=== PATIENT | female | born 1950 | race Caucasian/White ===

== ENCOUNTER → 2023-07-27 09:12 | Outpatient (REF) | payer MEDICARE, OTHER, SELFPAY | LOC: PAVMRI 09:12 | PROVIDERS: ATTENDING PHYSICIAN Orthopaedic Surgery; FAMILY PHYSICIAN Internal Medicine Geriatric Medicine | DX: M25.512 Pain in left shoulder (principal) | CPT/HCPCS: 73221 ==

== ENCOUNTER → 2023-08-14 09:53 | Outpatient (REF) | payer MEDICARE, OTHER, SELFPAY ==
[2023-08-14 11:04] LABS: % Basophils 1.2 % (0-2); % Eosinophils 2.6 % (0-6); % Immature Granulocytes 0.2 % (0-0.5); % Lymphocytes 25.4 % (20.5-51.1); % Monocytes 8.3 % (1.7-9.3); % Neutrophils 62.3 % (42.2-75.2); Absolute Basophils 0.1 10^3/uL (0-0.2); Absolute Eosinophils 0.1 10^3/uL (0-0.7); Absolute Lymphocytes 1.3 10^3/uL (1.2-3.4); Absolute Monocytes 0.4 10^3/uL (0.1-0.6); Absolute Neutrophils 3.2 10^3/uL (1.4-6.5); Hematocrit 40.2 % (37.0-47.0); Hemoglobin 13.2 g/dL (12.0-16.0); Mean Corp Hgb Conc. 32.8 g/dL (33.0-37.0); Mean Corpuscular Hgb 30.3 pg (27.0-31.0); Mean Corpuscular Volume 92.2 fL (81.0-99.0); Mean Platelet Volume 9.8 fL (7.4-10.4); Nucleated Red Blood Cells % 0 %; Platelet Count 238 10^3/uL (130-400); Red Blood Cell Count 4.36 10^6/uL (4.20-5.40); Red Cell Dist. Width 13.5 % (11.5-14.5); White Blood Cell Count 5.1 10^3/uL (4.8-10.8)
[2023-08-14 12:04] LABS: Blood Urea Nitrogen 17 mg/dl (7-17); Calcium 10.1 mg/dl (8.4-10.2); Carbon Dioxide 27 mmol/L (22-30); Chloride 103 mmol/L (98-107); Glucose 90 mg/dl (70-99); Potassium 4.5 mmol/L (3.5-5.1); Sodium 139 mmol/L (135-145); eGFR > 60.00
== END ==
LOC: REG 09:53
PROVIDERS: ATTENDING PHYSICIAN Orthopaedic Surgery
DX: Z01.818 Encounter for other preprocedural examination (principal)
CPT/HCPCS: 36415; 80048; 85025; 93005

== ENCOUNTER 2023-10-13 10:51 | Outpatient (RCR) | payer MEDICARE, OTHER, SELFPAY | END 2023-10-13 23:59 | disposition home or self-care (01) | LOC: RPT 10:51 | PROVIDERS: ATTENDING PHYSICIAN Orthopaedic Surgery; FAMILY PHYSICIAN Internal Medicine Geriatric Medicine | DX: M25.512 Pain in left shoulder (principal); Z98.890 Other specified postprocedural states; Z73.6 Limitation of activities due to disability | CPT/HCPCS: 97010; 97110; 97140; 97162 ==

== ENCOUNTER 2023-10-28 09:52 | Outpatient (RCR) | payer MEDICARE, OTHER, SELFPAY | END 2023-10-28 12:12 | disposition home or self-care (01) | LOC: RPT 09:52 | PROVIDERS: ATTENDING PHYSICIAN Orthopaedic Surgery; FAMILY PHYSICIAN Internal Medicine Geriatric Medicine | DX: M75.102 Unspecified rotator cuff tear or rupture of left shoulder, not specified as traumatic (principal) | CPT/HCPCS: 97010; 97110; 97140 ==

== ENCOUNTER → 2024-03-04 08:35 | Outpatient (REF) | payer MEDICARE, OTHER, SELFPAY ==
[2024-03-04 09:25] LABS: % Basophils 0.8 % (0-2); % Eosinophils 1.8 % (0-6); % Immature Granulocytes 0.2 % (0-0.5); % Lymphocytes 25.7 % (20.5-51.1); % Monocytes 7.9 % (1.7-9.3); % Neutrophils 63.6 % (42.2-75.2); Absolute Eosinophils 0.1 10^3/uL (0-0.7); Absolute Lymphocytes 1.3 10^3/uL (1.2-3.4); Absolute Monocytes 0.4 10^3/uL (0.1-0.6); Absolute Neutrophils 3.2 10^3/uL (1.4-6.5); Hematocrit 39.1 % (37.0-47.0); Hemoglobin 13.4 g/dL (12.0-16.0); Mean Corp Hgb Conc. 34.3 g/dL (33.0-37.0); Mean Corpuscular Hgb 31.7 pg (27.0-31.0); Mean Corpuscular Volume 92.4 fL (81.0-99.0); Mean Platelet Volume 9.4 fL (7.4-10.4); Nucleated Red Blood Cells % 0 %; Platelet Count 243 10^3/uL (130-400); Red Blood Cell Count 4.23 10^6/uL (4.20-5.40); Red Cell Dist. Width 13.2 % (11.5-14.5)
[2024-03-04 09:49] LABS: Urine Albumin Negative (Neg - Trace); Urine Bilirubin Negative (Negative); Urine Character Clear (Clear); Urine Color Yellow; Urine Glucose Negative (Negative); Urine Ketone Negative (Negative); Urine Leukocyte Trace (Negative); Urine Nitrite Negative (Negative); Urine Occult Blood Negative (Negative); Urine Specific Gravity 1.015 (<1.030); Urine Urobilinogen Negative (Neg - 1+)
[2024-03-04 09:59] LABS: Vitamin D, 25-OH*** 53.6 ng/mL (30-80)
[2024-03-04 10:05] LABS: ALT (SGPT) 19 U/L (0-35); AST (SGOT) 31 U/L (14-36); Albumin 4.4 g/dl (3.5-5.0); Alkaline Phosphatase 72 U/L (38-126); Blood Urea Nitrogen 12 mg/dl (7-17); Calcium 9.9 mg/dl (8.4-10.2); Carbon Dioxide 26 mmol/L (22-30); Chloride 107 mmol/L (98-107); Glucose 87 mg/dl (70-99); HDL Cholesterol 96 mg/dl; LDL Cholesterol, Calculated 85 mg/dl; Potassium 4.2 mmol/L (3.5-5.1); Sodium 144 mmol/L (135-145); Total Bilirubin 0.8 mg/dl (0.2-1.3); Total Cholesterol 194 mg/dl (50-199); Total Protein 6.6 g/dl (6.3-8.2); Triglyceride 69 mg/dl (10-149); Very Low Density Lipoprotein 13 mg/dl (0-30); eGFR > 60.00
[2024-03-04 10:13] LABS: TSH Reflex To Free T4 2.33 uIU/ml (0.47-4.68)
[2024-03-04 11:23] LABS: Urine Mucus Many
[2024-03-04 11:24] LABS: Urine Red Blood Cell 0-2 /HPF (0-2); Urine White Cell 0-2 /HPF (0-5)
== END ==
LOC: REG 08:35
PROVIDERS: ATTENDING PHYSICIAN Internal Medicine Geriatric Medicine
DX: E03.9 Hypothyroidism, unspecified (principal); E78.2 Mixed hyperlipidemia; E55.9 Vitamin D deficiency, unspecified; Z00.00 Encounter for general adult medical examination without abnormal findings; I10 Essential (primary) hypertension
CPT/HCPCS: 36415; 80053; 80061; 81003; 81015; 82306; 84443; 85025

== ENCOUNTER → 2024-04-04 15:11 | Outpatient (REF) | payer MEDICARE, OTHER, SELFPAY | LOC: WDC 15:11 | PROVIDERS: ATTENDING PHYSICIAN Internal Medicine Geriatric Medicine | DX: Z12.39 Encounter for other screening for malignant neoplasm of breast (principal); Z12.31 Encounter for screening mammogram for malignant neoplasm of breast | CPT/HCPCS: 77063; 77067 ==

== ENCOUNTER → 2025-03-13 10:49 | Outpatient (REF) | payer MEDICARE, OTHER, SELFPAY ==
[2025-03-13 11:32] LABS: Urine Character Clear (Clear)
[2025-03-13 11:35] LABS: Hematocrit 41.2 % (37.0-47.0); Hemoglobin 13.3 g/dL (12.0-16.0); Mean Corp Hgb Conc. 32.3 g/dL (33.0-37.0); Mean Corpuscular Volume 96.0 fL (81.0-99.0); Nucleated Red Blood Cells % 0 %; Platelet Count 259 10^3/uL (130-400); Red Cell Dist. Width 13.2 % (11.5-14.5)
[2025-03-13 11:41] LABS: Urine Red Blood Cell 0-2 /HPF (0-2)
[2025-03-13 12:01] LABS: ALT (SGPT) 25 U/L (0-35); AST (SGOT) 31 U/L (14-36); Albumin 4.5 g/dl (3.5-5.0); Alkaline Phosphatase 74 U/L (38-126); Blood Urea Nitrogen 13 mg/dl (7-17); Calcium 9.7 mg/dl (8.4-10.2); Carbon Dioxide 29 mmol/L (22-30); Chloride 107 mmol/L (98-107); Glucose 95 mg/dl (70-99); HDL Cholesterol 98 mg/dl; LDL Cholesterol, Calculated 91 mg/dl; Potassium 4.4 mmol/L (3.5-5.1); Sodium 138 mmol/L (135-145); Total Protein 7.2 g/dl (6.3-8.2); Very Low Density Lipoprotein 14 mg/dl (0-30); eGFR > 60.00
[2025-03-13 12:13] LABS: Vitamin D, 25-OH*** 51.4 ng/mL (30-80)
== END ==
LOC: REG 10:49
PROVIDERS: ATTENDING PHYSICIAN Internal Medicine Geriatric Medicine
DX: E78.2 Mixed hyperlipidemia (principal); E03.9 Hypothyroidism, unspecified; Z00.00 Encounter for general adult medical examination without abnormal findings; E55.9 Vitamin D deficiency, unspecified
CPT/HCPCS: 36415; 80053; 80061; 81003; 81015; 82306; 84443; 85025

== ENCOUNTER → 2025-04-11 08:44 | Outpatient (REF) | payer MEDICARE, OTHER, SELFPAY | LOC: WDC 08:44 | PROVIDERS: ATTENDING PHYSICIAN Internal Medicine Geriatric Medicine | DX: Z12.31 Encounter for screening mammogram for malignant neoplasm of breast (principal) | CPT/HCPCS: 77063; 77067 ==